=== PATIENT | female | born 1955 | race African-American/Black ===

== ENCOUNTER 2021-01-30 20:03 | Emergency (ER) | payer OTHER ==
[~2021-01-30] VITALS: Ht 162.6 cm; Wt 66.0 kg
[2021-01-30] MEDS ORDERED: IBUPROFEN 600MG TABLET PO STA (22:19)
[2021-01-30 22:45] VITALS: BP 162/92
[2021-01-30] MEDS ORDERED: CYCL5TAB PO (23:34)
[2021-01-30] MEDS ORDERED: NAPR-681 PO (23:34)
== END 2021-01-30 23:56 | disposition home or self-care (01) ==
LOC: ER 20:03
DX: M79.602 Pain in left arm (principal); R07.81 Pleurodynia; V43.62XA Car passenger injured in collision with other type car in traffic accident, initial encounter; Y93.89 Activity, other specified; Y92.488 Other paved roadways as the place of occurrence of the external cause
CPT/HCPCS: 71045; 73060; 99284

== ENCOUNTER 2021-08-29 04:47 | Emergency (ER) | payer OTHER, MEDICAID ==
[~2021-08-29] VITALS: Ht 162.6 cm; Wt 70.8 kg
[~2021-08-29 04:47] MED LIST: CYCL5TAB PO; NAPR-681 PO
[2021-08-29] MEDS ORDERED: ACETAMINOPHEN 325MG TABLET PO ONE (05:30)
[2021-08-29] MEDS ORDERED: TETANUS, DIPHTHERIA, PERTUSSIS VAC/PF 0.5ML (>10YR OLD) IM ONE (05:30)
[2021-08-29] MEDS ORDERED: TOPUD PO (06:21)
[2021-08-29 06:40] VITALS: BP 181/101
== END 2021-08-29 06:58 | disposition home or self-care (01) ==
LOC: ER 04:47
DX: S01.511A Laceration without foreign body of lip, initial encounter (principal); R51.9 Headache, unspecified; Z98.51 Tubal ligation status; V43.52XA Car driver injured in collision with other type car in traffic accident, initial encounter; Y93.89 Activity, other specified; Y92.488 Other paved roadways as the place of occurrence of the external cause
CPT/HCPCS: 70486; 90471; 90715; 99284

== ENCOUNTER 2023-02-09 04:14 | Emergency (ER) | payer MEDICAID, MEDICARE, OTHER ==
[~2023-02-09] VITALS: Ht 165.1 cm; Wt 76.0 kg
[~2023-02-09 04:14] MED LIST changes: +TOPUD PO
[2023-02-09 04:40] VITALS: TEMP 98.1; O2SAT 98
[2023-02-09] MEDS ORDERED: OXYCODONE HCL/ACETAMINOPHEN 5/325MG TABLET PO ONE (06:00)
[2023-02-09] MEDS ORDERED: IBUP-2028 PO (07:15)
[2023-02-09 08:05] VITALS: BP 142/82; PULSE 68; RESP 16
== END 2023-02-09 08:33 | disposition home or self-care (01) ==
LOC: ER 04:14
DX: S80.12XA Contusion of left lower leg, initial encounter (principal); X58.XXXA Exposure to other specified factors, initial encounter; Y93.89 Activity, other specified; Y92.89 Other specified places as the place of occurrence of the external cause; Y99.8 Other external cause status
CPT/HCPCS: 73590; 73620; 93971; 99284

== ENCOUNTER 2024-03-27 06:44 | Emergency (ER) | payer BC, MEDICAID ==
[~2024-03-27] VITALS: Ht 165.1 cm; Wt 75.0 kg
[~2024-03-27 06:44] MED LIST changes: -CYCL5TAB PO; +CYCL5TAB3 PO; +IBUP-2028 PO
[2024-03-27 06:50] VITALS: BP 149/102; PULSE 70; RESP 20; TEMP 98.2; O2SAT 99
== END 2024-03-27 09:30 | disposition left against medical advice (07) ==
LOC: ER 06:44
DX: R53.1 Weakness (principal); Z53.21 Procedure and treatment not carried out due to patient leaving prior to being seen by health care provider